=== PATIENT | female | born 1975 | race Caucasian/White ===

== ENCOUNTER 2023-08-27 14:27 | Emergency (ER) | payer BC, SELFPAY ==
[2023-08-27 14:46] VITALS: BP 130/82; PULSE 67; RESP 16; TEMP 37.1; O2SAT 98; BMI 37.7
[2023-08-27 15:16] LABS: Add Manual Diff / Slide Review NO; Basophils Absolute Auto 100 /uL (0-100); Basophils Percent Auto 1.5 % (0-2); Eosinophils Absolute Auto 200 /uL (0-450); Eosinophils Percent Auto 2.7 % (2-4); Hematocrit 41.9 % (36-46); Hemoglobin 14.4 g/dL (12.0-16.0); Lymphocytes Absolute Auto 3400 /uL (1100-4500); Lymphocytes Percent Auto 40.7 % (25-40); Mean Corpuscular HGB Conc 34.3 % (30-36); Mean Corpuscular Hemoglobin 30.1 PG (26-34); Mean Corpuscular Volume 87.7 fL (80-100); Monocytes Absolute Auto 500 /uL (0-900); Monocytes Percent Auto 6.3 % (3-14); Neutrophils Absolute Auto 4000 /uL (1500-7000); Neutrophils Percent Auto 48.8 % (50-75); Platelet Count 278 X10^3/uL (150-400); Red Blood Cell Count 4.78 X10^6/uL (4.0-5.2); Red Cell Distribution Width 14.1 % (11.6-14.8); White Blood Cell Count 8.3 X10^3/uL (4.5-11.0)
[2023-08-27 15:20] LABS: Alanine Aminotransferase 19 IU/L (<35); Albumin 4.3 g/dL (3.5-5.0); Albumin Globulin Ratio 1.5 (1.0-2.8); Alkaline Phosphatase 59 U/L (38-126); Aspartate Aminotransferase 24 IU/L (14-36); BUN Creatinine Ratio 14.5 (6-22); Bilirubin Total 0.9 mg/dL (0.2-1.3); Blood Urea Nitrogen 12 mg/dL (7-17); Calcium 8.7 mg/dL (8.4-10.2); Carbon Dioxide 30 mmol/L (22-32); Chloride 105 mmol/L (98-107); Estimated Glomerular Filt Rate > 60 mL/min (>60); Globulin 2.8 g/dL (1.7-4.1); Glucose 107 mg/dL (70-100); HEMOLYSIS 26 (0-50); Lipase 196 U/L (23-300); Potassium 3.8 mmol/L (3.4-5.1); Sodium 139 mmol/L (137-145); Total Protein 7.1 g/dL (6.3-8.2)
[2023-08-27 15:29] LABS: Bacteria Urine Occasional (0-1); Culture Indicated Urine Cult Not Indicated; RBC Urine 1-5/HPF (0-5/HPF); Squamous Epithelial Cell Urine 1-5 /HPF (0-5/HPF); Urine Volume 10mL (spun); WBC Urine 0-1/HPF (0-5/HPF)
--- NOTE | 2023-08-27 17:18 | DI.CT.S_ITS ---
PROCEDURE: CT ABDOMEN PELVIS W CON INDICATIONS: Left sided abd, flank pain TECHNIQUE: After the administration of intravenous contrast, axial sections acquired from the lung bases to the pubic symphysis. Coronal and sagittal reformats were performed. For radiation dose reduction, the following was used: automated exposure control, adjustment of mA and/or kV according to patient size. COMPARISON: None. FINDINGS: Image quality: Diagnostic Lower chest: Scattered scarring and atelectasis. Liver: Unremarkable. Gallbladder and biliary system: Unremarkable, nondilated Pancreas: No ductal dilation Spleen: Nonenlarged Adrenals: No discrete nodule. Kidneys: No solid renal mass. No hydronephrosis. Vessels and lymph nodes: The main portal vein is patent. No abdominal aortic aneurysm or pathologic lymph nodes by size criteria. Bowel and peritoneum: Mildly distended stomach. No small bowel obstruction. Colonic diverticula. There is mild wall thickening of the sigmoid colon. Mild surrounding inflammatory changes. The appendix is nondilated. Body wall: Small fat containing umbilical hernia Pelvis: Bladder is unremarkable. Focal low attenuation within the cervix, probably fluid. Adnexal structures are unremarkable on limited CT evaluation. Pelvic calcifications favored to represent phleboliths. Bones: No acute or suspicious osseous finding. There are degenerative changes. IMPRESSION: Mild fat stranding and wall thickening of the sigmoid colon. There are numerous diverticula. Findings may represent minimal acute on chronic diverticulitis. No abscess. No hydronephrosis or obstructing calcified stone Focal presumed fluid within the cervix. Consider correlation with direct visualization or ultrasound if there are symptoms. Other findings as above. Dictated by: Len Epstein M.D. on 08/27/2023 at 17:47 Approved by: Len Epstein M.D. on 08/27/2023 at 17:53
[2023-08-27 18:32] VITALS: BP 135/74; PULSE 65; RESP 18; O2SAT 97
--- NOTE | 2023-08-27 18:34 | ED.ABDPAIN ---
HPI - Abdominal Pain <Mame Hernandez PA-C - Last Filed: 08/27/23 18:40> General Chief Complaint: Abdominal Pain Stated Complaint: GI issues, flank pain, sent by [facility] Time Seen by Provider: 08/27/23 17:10 Source: patient Mode of arrival: Ambulatory History of Present Illness HPI narrative: 48-year-old female with past medical history nephrolithiasis presents to the ED with 3 days of left-sided abdominal pain. Patient endorses some soft stools as well as watery diarrhea. Patient endorses a prior history of kidney stones. Last time that the patient had kidney stones was in 2019 and was able to pass them spontaneously with tamsulosin. Patient denies fever, chills, chest pain, shortness of breath, dysuria, lightheadedness, dizziness, syncope. Patient denies vomiting but does endorse some mild nausea. Related Data Previous Rx's Medication Instructions Recorded citalopram 20 mg tablet 20 mg PO DAILY #90 tabs 07/13/23 ciprofloxacin HCl 500 mg tablet 500 mg PO BID 5 days #10 tabs 08/27/23 metronidazole 500 mg tablet 500 mg PO Q8H 5 days #15 tabs 08/27/23 Allergies Allergy/AdvReac Type Severity Reaction Status Date / Time Penicillins Allergy Severe Anaphylaxis Verified 08/27/23 13:53 adhesive tape Allergy Intermediate Rash Verified 08/27/23 13:53 Review of Systems <Mame Hernandez PA-C - Last Filed: 08/27/23 18:40> Constitutional Constitutional: Denies chills, Denies fatigue, Denies fever(s), Denies frequent falls, Denies lethargy and Denies weakness Eyes Eyes: Denies change in vision, Denies eye discharge, Denies irritation and Denies loss of vision ENT Ears, Nose, Mouth, and Throat: Denies change in voice, Denies dizziness, Denies neck pain, Denies sore throat and Denies throat swelling Cardiovascular Cardiovascular: Denies chest pain, Denies irregular heart rhythm, Denies lightheadedness, Denies palpitations, Denies dyspnea, Denies dyspnea on exertion and Denies orthopnea Respiratory Respiratory: Denies cough, Denies dyspnea, Denies dyspnea on exertion and Denies wheezing Gastrointestinal Gastrointestinal: Reports abdominal pain, Denies change in bowel habits, Reports diarrhea, Reports nausea and Denies vomiting Musculoskeletal Musculoskeletal: Denies neck pain and Denies numbness Integumentary/Breasts Skin/Breast: Denies pruritus, Denies erythema, Denies rash and Denies wounds Neurologic Neurologic: Denies behavioral changes, Denies confusion, Denies dizziness, Denies frequent falls, Denies loss of vision, Denies numbness and Denies weakness Psychiatric Psychiatric: Denies anxiety, Denies behavioral changes, Denies confusion, Denies depression, Denies homicidal ideation and Denies suicidal ideation Endocrine Endocrine: Denies fatigue, Denies flushing and Denies palpitations Hematologic/Lymphatic Hematologic/Lymphatic: Denies easy bruising Allergic/Immunologic Allergic/Immunologic: Denies urticaria, Denies throat swelling and Denies wheezing Patient History <Mame Hernandez PA-C - Last Filed: 08/27/23 18:40> Medical History History of nephrolithiasis Premenstrual dysphoric disorder Social History Smoking Status: Former smoker Smoking Status: Former smoker Exam <Mame Hernandez PA-C - Last Filed: 08/27/23 18:40> Narrative Exam Narrative: Const General:?cooperative, healthy appearing and comfortable [facility] Head:?normal to inspection Ears:?hearing grossly normal bilaterally Nose:?external nose normal Face and sinus:?normal facial exam and sinuses nontender Mouth:?oral mucosae normal Throat:?posterior oropharynx normal Eyes General:?appearance normal, both eyes and all related structures Neck Neck:?normal visual inspection and no lymphadenopathy noted Resp Effort & Inspection:?normal respiratory effort Auscultation:?clear to auscultation bilaterally Cardio Rate:?regular rate Rhythm:?regular rhythm GI Abdomen is soft, nondistended, tender to palpation in the left upper and left lower quadrant. No CVA tenderness. Neuro General:?patient alert, patient awake and patient oriented x3 Initial Vital Signs Initial Vital Signs: Vital Signs Temperature 98.7 F 08/27/23 14:46 Pulse Rate 67 08/27/23 14:46 Respiratory Rate 16 08/27/23 14:46 Blood Pressure 130/82 08/27/23 14:46 Pulse Oximetry 98 08/27/23 14:46 Oxygen Delivery Method Room Air 08/27/23 14:46 <Chente Sifuentes MD - Last Filed: 08/31/23 11:39> Initial Vital Signs Initial Vital Signs: Vital Signs Temperature 98.7 F 08/27/23 14:46 Pulse Rate 67 08/27/23 14:46 Respiratory Rate 16 08/27/23 14:46 Blood Pressure 130/82 08/27/23 14:46 Pulse Oximetry 98 08/27/23 14:46 Oxygen Delivery Method Room Air 08/27/23 14:46 Course <Mame Hernandez PA-C - Last Filed: 08/27/23 18:40> Orders Ordered: Discontinued Medications Ondansetron HCl (Ondansetron 4 Mg/2 Ml Inj) 4 mg IV NOW PRN PRN Reason: Nausea And Vomiting Ondansetron HCl (Ondansetron 4 Mg Odt) 4 mg PO NOW PRN PRN Reason: Nausea And Vomiting Vital Signs Vital signs: Vital Signs - 8 hr 08/27/23 14:46 Temperature 98.7 F Pulse Rate 67 Respiratory Rate 16 Blood Pressure 130/82 Pulse Oximetry 98 Oxygen Delivery Method Room Air <Chente Sifuentes MD - Last Filed: 08/31/23 11:39> Orders Ordered: Discontinued Medications Ondansetron HCl (Ondansetron 4 Mg/2 Ml Inj) 4 mg IV NOW PRN PRN Reason: Nausea And Vomiting Ondansetron HCl (Ondansetron 4 Mg Odt) 4 mg PO NOW PRN PRN Reason: Nausea And Vomiting Vital Signs Vital signs: Vital Signs - 8 hr 08/27/23 14:46 Temperature 98.7 F Pulse Rate 67 Respiratory Rate 16 Blood Pressure 130/82 Pulse Oximetry 98 Oxygen Delivery Method Room Air MDM - Abdominal Pain <Mame Hernandez PA-C - Last Filed: 08/27/23 18:40> Lab Data 08/27/23 14:55 08/27/23 14:55 Labs: Lab Results 08/27/23 Range/Units 14:55 WBC 8.3 (4.5-11.0) X10^3/uL RBC 4.78 (4.0-5.2) X10^6/uL Hgb 14.4 (12.0-16.0) g/dL Hct 41.9 (36-46) % MCV 87.7 (80-100) fL MCH 30.1 (26-34) PG MCHC 34.3 (30-36) % RDW 14.1 (11.6-14.8) % Plt Count 278 (150-400) X10^3/uL Neut % (Auto) 48.8 L (50-75) % Lymph % (Auto) 40.7 H (25-40) % [place] % (Auto) 6.3 (3-14) % Eos % (Auto) 2.7 (2-4) % Baso % (Auto) 1.5 (0-2) % Neut # (Auto) 4000 (4385-5544) /uL Lymph # (Auto) 3400 (7062-1857) /uL [place] # (Auto) 500 (0-900) /uL Eos # (Auto) 200 (0-450) /uL Baso # (Auto) 100 (0-100) /uL Sodium 139 (137-145) mmol/L Potassium 3.8 (3.4-5.1) mmol/L Chloride 105 (98-107) mmol/L Carbon Dioxide 30 (22-32) mmol/L BUN 12 (7-17) mg/dL Creatinine 0.83 (0.52-1.04) mg/dL Estimated GFR > 60 (>60) mL/min BUN/Creatinine Ratio 14.5 (6-22) Glucose 107 H (70-100) mg/dL Calcium 8.7 (8.4-10.2) mg/dL Total Bilirubin 0.9 (0.2-1.3) mg/dL AST 24 (14-36) IU/L ALT 19 (<35) IU/L Alkaline Phosphatase 59 (38-126) U/L Total Protein 7.1 (6.3-8.2) g/dL Albumin 4.3 (3.5-5.0) g/dL Globulin 2.8 (1.7-4.1) g/dL Albumin/Globulin Ratio 1.5 (1.0-2.8) Lipase 196 (23-300) U/L Urine RBC 1-5/hpf (0-5/HPF) Urine WBC 0-1/hpf (0-5/HPF) Ur Squamous Epith Cells 1-5 /hpf (0-5/HPF) Urine Bacteria Occasional (0-1) (None) Ur Culture Indicated? Cult not indicated Vol Urine Centrifuged 10ml (spun) Point of care testing: Urine Dip Bedside Urine Glucose Negative Bedside Urine Bilirubin - Negative Bedside Urine Ketone - Negative Urine Specific [place] 1.030 Bedside Urine Occult Blood ++ Bedside Urine pH 6.0 Bedside Urine Protein - Negative Bedside Urine Urobilinogen - Negative Bedside Urine Nitrite - Negative Bedside Urine Leukocytes - Negative Esterase MDM Narrative Medical decision making narrative: 48-year-old female with past medical history nephrolithiasis presents to the ED with 3 days of left-sided abdominal pain. Concern for nephrolithiasis versus diverticulitis versus UTI versus gastroenteritis versus other intra-abdominal pathology versus other. Will obtain labs, UA, CT abdomen pelvis. Labs within normal limits. UA without UTI. CT abdomen pelvis shows mild fat stranding and wall thickening of the sigmoid colon. There are numerous diverticula. Findings may represent minimal acute on chronic diverticulitis. No abscess. No hydronephrosis or obstructing calcified stone. There is some focal presumed fluid within the cervix. Discussed findings with patient. Prescribed antibiotics. Recommend clear fluid diet, slowly advancing the diet as tolerated. Recommend follow-up with PCP as soon as possible. ED return precautions discussed with patient. Patient verbalized understanding. Medical records reviewed: Yes <Chente Sifuentes MD - Last Filed: 08/31/23 11:39> Lab Data Labs: Lab Results 08/27/23 Range/Units 14:55 WBC 8.3 (4.5-11.0) X10^3/uL RBC 4.78 (4.0-5.2) X10^6/uL Hgb 14.4 (12.0-16.0) g/dL Hct 41.9 (36-46) % MCV 87.7 (80-100) fL MCH 30.1 (26-34) PG MCHC 34.3 (30-36) % RDW 14.1 (11.6-14.8) % Plt Count 278 (150-400) X10^3/uL Neut % (Auto) 48.8 L (50-75) % Lymph % (Auto) 40.7 H (25-40) % [place] % (Auto) 6.3 (3-14) % Eos % (Auto) 2.7 (2-4) % Baso % (Auto) 1.5 (0-2) % Neut # (Auto) 4000 (0202-5592) /uL Lymph # (Auto) 3400 (4124-9119) /uL [place] # (Auto) 500 (0-900) /uL Eos # (Auto) 200 (0-450) /uL Baso # (Auto) 100 (0-100) /uL Sodium 139 (137-145) mmol/L Potassium 3.8 (3.4-5.1) mmol/L Chloride 105 (98-107) mmol/L Carbon Dioxide 30 (22-32) mmol/L BUN 12 (7-17) mg/dL Creatinine 0.83 (0.52-1.04) mg/dL Estimated GFR > 60 (>60) mL/min BUN/Creatinine Ratio 14.5 (6-22) Glucose 107 H (70-100) mg/dL Calcium 8.7 (8.4-10.2) mg/dL Total Bilirubin 0.9 (0.2-1.3) mg/dL AST 24 (14-36) IU/L ALT 19 (<35) IU/L Alkaline Phosphatase 59 (38-126) U/L Total Protein 7.1 (6.3-8.2) g/dL Albumin 4.3 (3.5-5.0) g/dL Globulin 2.8 (1.7-4.1) g/dL Albumin/Globulin Ratio 1.5 (1.0-2.8) Lipase 196 (23-300) U/L Urine RBC 1-5/hpf (0-5/HPF) Urine WBC 0-1/hpf (0-5/HPF) Ur Squamous Epith Cells 1-5 /hpf (0-5/HPF) Urine Bacteria Occasional (0-1) (None) Ur Culture Indicated? Cult not indicated Vol Urine Centrifuged 10ml (spun) Point of care testing: Urine Dip Bedside Urine Glucose Negative Bedside Urine Bilirubin - Negative Bedside Urine Ketone - Negative Urine Specific [place] 1.030 Bedside Urine Occult Blood ++ Bedside Urine pH 6.0 Bedside Urine Protein - Negative Bedside Urine Urobilinogen - Negative Bedside Urine Nitrite - Negative Bedside Urine Leukocytes - Negative Esterase Discharge Plan Departure Patient Disposition: Home Clinical Impression: Diverticulitis Instructions: DI for Diverticulitis Activity Restrictions/Additional Instructions: You were evaluated in the ED today for diarrhea and abdominal pain. Your labs and urine were normal. Your CT scan does show diverticulitis, which is an infection in your colon. You are being treated with antibiotics for it. Please take the antibiotics as prescribed. It is recommended that you consume a clear liquid diet for the next 2-3 days, slowly advancing your diet to include more solids. Please follow-up with your PCP as soon as possible. Return to the ED if you have worsening symptoms. Prescriptions: New ciprofloxacin HCl 500 mg tablet 500 mg PO BID 5 Days Qty: 10 0RF metronidazole 500 mg tablet 500 mg PO Q8H 5 Days Qty: 15 0RF No Action citalopram 20 mg tablet 20 mg PO DAILY Qty: 90 4RF Referrals: Bri Cruz MD [Primary Care Provider] - Stand Alone Forms: Patient Portal/API ED Sign-out <Chente Sifuentes MD - Last Filed: 08/31/23 11:39> Cosign ED Attending Cosignature Attestation: I was immediately available in the department for consultation. ?This documentation has been reviewed and I agree with assessment and plan. Supervised by Chente Sifuentes MD
== END 2023-08-27 18:32 | disposition home or self-care (01) ==
PROVIDERS: Emergency Medicine; Emergency Provider Student in an Organized Health Care Education/Training Program; PCP Family Medicine
DX: K57.92 Diverticulitis of intestine, part unspecified, without perforation or abscess without bleeding (principal); R19.7 Diarrhea, unspecified
CPT/HCPCS: 36415; 74177; 80053; 81003; 81015; 83690; 85025; 99284; Q9967

== ENCOUNTER → 2023-10-06 10:55 | Outpatient (CLI) | payer BC, SELFPAY ==
[2023-10-09 11:11] LABS: H. Pylori Antigen Stool Negative (Negative)
== END ==
PROVIDERS: PCP Family Medicine; Referring Provider Family Medicine; Visit Provider Family Medicine
DX: K92.1 Melena (principal); R19.5 Other fecal abnormalities
CPT/HCPCS: 87338

== ENCOUNTER → 2023-11-24 13:10 | Outpatient (CLI) | payer BC, SELFPAY ==
--- NOTE | 2023-11-24 | DI.MG.S_ITS ---
BILATERAL DIGITAL SCREENING MAMMOGRAM 3D/2D WITH CAD: 11/24/2023 CLINICAL: Routine screening. Family history of breast cancer. Comparison is made to exams dated: 09/30/2022 mammogram and 08/30/2021 mammogram - Outside facility. The breasts are heterogeneously dense, which may obscure small masses (category c / 51-75% glandular tissue). Current study was also evaluated with a Computer Aided Detection (CAD) system. No significant masses, calcifications, or other findings are seen in either breast. There has been no significant interval change. IMPRESSION: NEGATIVE There is no mammographic evidence of malignancy. A 1 year screening mammogram is recommended. Based on the Tyrer Cuzick model (a risk assessment model) the patient's lifetime risk is 11.2% and her 10 year risk is 2.4%. According to the ACR, ACS, and NCCN guidelines, an annual breast MRI exam along with mammogram is recommended if the patient's lifetime risk is 20% or greater. This exam was interpreted at Station ID: [id number]. NOTE: For mammograms, a report in lay terms will be sent to the patient. Approximately 15% of breast malignancies will not be visualized mammographically. In the management of a palpable breast mass, a negative mammogram must not discourage biopsy of a clinically suspicious lesion. Electronically Signed By: Rubina self/julieta:11/26/2023 12:01:16 letter sent: Normal Exam ACR BI-RADS Category 1: Negative [id number]
== END ==
LOC: MAMMO 13:11
PROVIDERS: PCP Family Medicine; Referring Provider Family Medicine; Visit Provider Family Medicine
DX: Z12.31 Encounter for screening mammogram for malignant neoplasm of breast (principal); Z80.3 Family history of malignant neoplasm of breast; R92.333 Mammographic heterogeneous density, bilateral breasts
CPT/HCPCS: 77063; 77067

== ENCOUNTER 2023-12-27 10:15 | Emergency (ER) | payer BC, SELFPAY ==
[2023-12-27] VITALS (24 sets, daily range): BP systolic 109–152; BP diastolic 58–81; PULSE 57–91; RESP 11–29; TEMP 36.6; O2SAT 92–98; BMI 37.7
[2023-12-27] MEDS: ACETAMINOPHEN 325 MG TABLET 650 MG PO (10:25)
--- NOTE | 2023-12-27 11:41 | ED_ITS ---
HPI - Headache General Chief Complaint: Headache Stated Complaint: Headache, feeling sick , shaky Time Seen by Provider: 12/27/23 11:39 Mode of arrival: Ambulatory History of Present Illness HPI Narrative: 48-year-old woman with a history of depression, headaches presents with severe headache present for 24 hours and increasing pelvic pain and tenderness. She was seen by her primary care physician on December 20 with concerns for tenderness left labial/vaginal area. There was concern for a Bartholin's cyst however drainage was attempted and no fluid was returned. Patient complains that this area continues to hurt she is having pain with defecation she is having trouble sitting flat now is notice some inguinal adenopathy on the left side and some low pelvic pain. No nausea or vomiting. No chest pain, palpitations, fevers or cough Related Data Previous Rx's Medication Instructions Recorded citalopram 20 mg tablet 20 mg PO DAILY #90 tabs 07/13/23 doxycycline hyclate 100 mg capsule 100 mg PO BID #20 caps 12/27/23 oxycodone-acetaminophen 5 mg-325 1 tab PO Q6H PRN pain #14 tabs 12/27/23 mg tablet Allergies Allergy/AdvReac Type Severity Reaction Status Date / Time Penicillins Allergy Severe Anaphylaxis Verified 12/27/23 10:19 adhesive tape Allergy Intermediate Rash Verified 12/27/23 10:19 Review of Systems Review of Systems Narrative: Pertinent positive and negative findings as per HPI Patient History Medical History Mucus in stool Hematochezia History of nephrolithiasis Premenstrual dysphoric disorder Social History Smoking Status: Former smoker Smoking Status: Former smoker alcohol intake frequency: holidays/special occasions only Substance Use Type: does not use Exam Initial Vital Signs Initial Vital Signs: Vital Signs Temperature 97.8 F 12/27/23 10:19 Pulse Rate 72 12/27/23 10:19 Respiratory Rate 14 12/27/23 10:19 Blood Pressure 152/70 H 12/27/23 10:19 Pulse Oximetry 95 12/27/23 10:19 Oxygen Delivery Method Room Air 12/27/23 10:19 General: Ill-appearing, pale, headache behaviors, able to cooperate completely with exam and history HEENT: Moist mucous membranes, normal sclera with reactive pupils, Respiratory: Lungs are clear to auscultation, no wheezing no rales no rhonchi. Full and symmetrical air movement Cardiac: Regular rate and rhythm no murmurs no bruits Abdomen: Soft, mild tenderness in the left lower quadrants, left inguinal adenopathy Pelvic: She has fullness and tenderness along the left vaginal wall, perineal body and perirectal area no obvious abscess appreciated. Prior attempts for drainage appear to have healed nicely. Skin: Warm and dry, no rashes Neurologic: Grossly neurologically intact with no obvious asymmetries or abnormalities Extremities: No trauma, well perfused Psych: Cooperative, appropriate insight and affect Course Orders Ordered: ED Orders 12/27/23 11:57 CT abdomen pelvis w con Stat 12/27/23 12:10 Blood Culture Stat Complete Blood Count AUTO DIFF Stat Comprehensive Metabolic Panel Stat Lactate (Lactic Acid) Stat 12/27/23 13:37 Urinalysis and Microscopic Stat Discontinued Medications Acetaminophen (Acetaminophen 325 Mg Tablet) 650 mg PO NOW ONE Stop: 12/27/23 10:24 Last Admin: 12/27/23 10:25 Dose: 650 mg Documented By: LUCHO Acetaminophen (Acetaminophen 325 Mg Tablet) 975 mg PO NOW ONE Stop: 12/27/23 15:02 Last Admin: 12/27/23 15:25 Dose: 975 mg Documented By: RAHEEM Droperidol (Droperidol 5 Mg/2 Ml Vial) 0.625 mg IV NOW ONE Stop: 12/27/23 15:02 Last Admin: 12/27/23 15:25 Dose: 0.625 mg Documented By: RAHEEM Sodium Chloride (Normal Saline 0.9%) 1,000 mls @ 1,000 mls/hr IV BOLUS ONE Stop: 12/27/23 12:55 Last Infusion: 12/27/23 13:23 Dose: Infused Documented By: Admin: 12/27/23 12:02 Dose: 1,000 mls/hr Documented By: LUCHO(2) Ketorolac Tromethamine (Ketorolac 30 Mg/Ml Vial) 15 mg IV NOW ONE Stop: 12/27/23 11:57 Last Admin: 12/27/23 12:02 Dose: 15 mg Documented By: LUCHO(2) Ondansetron HCl (Ondansetron 4 Mg/2 Ml Inj) 4 mg IV NOW ONE Stop: 12/27/23 11:57 Last Admin: 12/27/23 12:02 Dose: 4 mg Documented By: LUCHO(2) Vital Signs Vital signs: Vital Signs - 8 hr 12/27/23 10:19 12/27/23 11:22 12/27/23 11:22 Temperature 97.8 F Pulse Rate 72 75 Respiratory Rate 14 Blood Pressure 152/70 H 133/67 Pulse Oximetry 95 96 Oxygen Delivery Method Room Air 12/27/23 11:30 12/27/23 11:30 12/27/23 12:00 Temperature Pulse Rate 68 67 Respiratory Rate Blood Pressure 124/67 Pulse Oximetry 93 93 Oxygen Delivery Method 12/27/23 12:00 12/27/23 12:12 12/27/23 12:16 Temperature Pulse Rate 57 L Respiratory Rate Blood Pressure 123/70 118/66 Pulse Oximetry 96 Oxygen Delivery Method 12/27/23 12:30 12/27/23 12:30 12/27/23 12:45 Temperature Pulse Rate 64 Respiratory Rate 12 Blood Pressure 119/58 L 113/58 L Pulse Oximetry 96 Oxygen Delivery Method 12/27/23 12:45 12/27/23 12:57 12/27/23 12:58 Temperature Pulse Rate 69 65 Respiratory Rate 16 15 Blood Pressure 125/69 Pulse Oximetry 95 95 Oxygen Delivery Method 12/27/23 12:58 12/27/23 13:00 12/27/23 13:00 Temperature Pulse Rate 64 65 Respiratory Rate 12 11 L Blood Pressure 109/66 Pulse Oximetry 98 97 Oxygen Delivery Method 12/27/23 13:15 12/27/23 13:15 12/27/23 13:36 Temperature Pulse Rate 63 68 Respiratory Rate 13 13 Blood Pressure 124/77 Pulse Oximetry 97 92 Oxygen Delivery Method 12/27/23 13:37 12/27/23 13:37 12/27/23 13:45 Temperature Pulse Rate 65 Respiratory Rate 13 Blood Pressure 130/63 127/61 Pulse Oximetry 97 Oxygen Delivery Method 12/27/23 13:45 12/27/23 14:00 12/27/23 14:00 Temperature Pulse Rate 65 68 Respiratory Rate 15 Blood Pressure 119/58 L Pulse Oximetry 97 96 Oxygen Delivery Method 12/27/23 14:15 12/27/23 14:15 12/27/23 14:43 Temperature Pulse Rate 67 91 H Respiratory Rate 16 Blood Pressure 120/65 Pulse Oximetry 97 Oxygen Delivery Method 12/27/23 15:00 12/27/23 15:30 Temperature Pulse Rate 64 71 Respiratory Rate 18 Blood Pressure Pulse Oximetry 97 96 Oxygen Delivery Method MDM - Headache Lab Data 12/27/23 12:10 12/27/23 12:10 Labs: Lab Results 12/27/23 12/27/23 Range/Units 12:10 13:37 WBC 8.2 (4.5-11.0) X10^3/uL RBC 4.97 (4.0-5.2) X10^6/uL Hgb 14.8 (12.0-16.0) g/dL Hct 43.0 (36-46) % MCV 86.6 (80-100) fL MCH 29.9 (26-34) PG MCHC 34.5 (30-36) % RDW 13.5 (11.6-14.8) % Plt Count 282 (150-400) X10^3/uL Neut % (Auto) 69.8 (50-75) % Lymph % (Auto) 25.5 (25-40) % [place] % (Auto) 3.4 (3-14) % Eos % (Auto) 0.4 L (2-4) % Baso % (Auto) 0.9 (0-2) % Neut # (Auto) 5700 (8838-8039) /uL Lymph # (Auto) 2100 (2980-2131) /uL [place] # (Auto) 300 (0-900) /uL Eos # (Auto) 0 (0-450) /uL Baso # (Auto) 100 (0-100) /uL Sodium 136 L (137-145) mmol/L Potassium 4.0 (3.4-5.1) mmol/L Chloride 102 (98-107) mmol/L Carbon Dioxide 27 (22-32) mmol/L BUN 9 (7-17) mg/dL Creatinine 0.55 (0.52-1.04) mg/dL Estimated GFR > 60 (>60) mL/min BUN/Creatinine Ratio 16.4 (6-22) Glucose 107 H (70-100) mg/dL Lactate 1.3 (0.7-2.1) mmol/L Calcium 9.0 (8.4-10.2) mg/dL Total Bilirubin 1.0 (0.2-1.3) mg/dL AST 21 (14-36) IU/L ALT 19 (<35) IU/L Alkaline Phosphatase 59 (38-126) U/L Total Protein 7.2 (6.3-8.2) g/dL Albumin 4.2 (3.5-5.0) g/dL Globulin 3.0 (1.7-4.1) g/dL Albumin/Globulin Ratio 1.4 (1.0-2.8) Urine Color Yellow Urine Appearance Clear Urine pH 8.5 H (4.5-8.0) Ur Specific [place] 1.010 (1.000-1.035) Urine Protein Negative (Negative) Urine Glucose (UA) Negative (Negative) g/dL Urine Ketones Negative (NEGATIVE) Urine Occult Blood Trace-intact (Negative) Urine Nitrate Negative (Negative) Urine Bilirubin Negative (NEGATIVE) Urine Urobilinogen 1.0 (0.2) E.U./dL Ur Leukocyte Esterase Negative (NEGATIVE) Urine RBC None seen (0-5/HPF) Urine WBC None seen (0-5/HPF) Ur Squamous Epith Cells 0-1 /hpf (0-5/HPF) Urine Bacteria None seen (None) Ur Culture Indicated? Cult not indicated Vol Urine Centrifuged 10ml (spun) Imaging Data CT scan - abdomen/pelvis: Radiologist's Impression: PROCEDURE: CT ABDOMEN PELVIS W CON INDICATIONS: pelvic/perirectal abscess TECHNIQUE: After the administration of intravenous contrast, axial sections acquired from the lung bases to the pubic symphysis. Coronal and sagittal reformats were performed. For radiation dose reduction, the following was used: automated exposure control, adjustment of mA and/or kV according to patient size. COMPARISON: [facility], CT, CT ABDOMEN PELVIS W CON, 08/27/2023, 17:25. FINDINGS: Image quality: Diagnostic. Lower Chest: No significant findings. ABDOMEN: Liver: No solid mass. Gallbladder: No radiopaque gallstones or wall thickening. Biliary ducts: No biliary dilation. Pancreas: No ductal dilation. Spleen: Size is within normal limits. Adrenal Glands: No adrenal nodules. Kidneys and Ureters: No hydronephrosis. No solid mass. No complex renal cystic lesion which requires follow up. Stomach and Bowel: Normal colonic caliber, without significant wall thickening. Mild distal colonic diverticulosis is seen, without findings of active diverticulitis. A normal appendix is noted. No dilated loops of small bowel are seen. Peritoneum: No abnormal intraperitoneal fluid. No free air. Ventral Wall: No significant ventral hernia. Abdominal Nodes: No retroperitoneal or mesenteric adenopathy by size criteria. Vessels: Aorta and inferior vena cava are normal in size. PELVIS: Pelvic Organs: A small amount of fluid again seen at the level of the cervix, as on series 2, image 135 and on series 4, image 78. This appears improved compared to the prior examination. Bladder: No bladder wall thickening, accounting for underdistention. Pelvic Nodes: No enlarged lymph nodes. Miscellaneous: No inguinal hernias are seen. There is abnormal fluid collection seen within the left perineum, seen anterior to the anus, near the introitus. This can be seen on series 2, image 162 measures 2 x 1.3 cm in greatest axial dimension, with a craniocaudal extent of 1.4 cm. This is clearly worse than on the prior examination. Moderate surrounding inflammatory change can be seen. Bones: No aggressive osseous abnormality. IMPRESSION: Abnormal fluid collection seen within the left perineum, anterior to the rectum, near the introitus. Please consider a Bartholin's gland abscess. Please correlate with physical examination findings. Improved fluid within the cervix. Additional findings: Normal appendix Diverticulosis, without active diverticulitis Dictated by: Star Bridges M.D. on 12/27/2023 at 12:24 MDM Narrative Medical decision making narrative: CC: Headache malaise and left pelvic pain Complicating co-morbidities: History of headaches, history of Bartholin duct cyst Data collected from: patient Differential considered: Migraine, concurrent Bartholin duct cyst, perirectal abscess, sepsis Exam documented above, pertinent findings include: Patient appears unwell but is able to cooperate fully with exam. Aside from left lower pelvic tenderness fullness along the left vaginal wall that does not appear to be mucosal, inguinal adenopathy and peroneal tenderness exam is otherwise fairly reassuring Lab Test results independently reviewed as above. Pertinent findings: CBC is unremarkable Chemistries are reassuring Urine does not show infection Imaging studies independently reviewed: CT scan shows an abnormal fluid collection the left perineum anterior to the rectum near the vaginal introitus measuring 2 x 1.3 by 1.4 cm. Concern for a Bartholin gland abscess. Consultations: Care is discussed with Dr. Shine, md psychiatry. Given the fact patient does not have a white count, is not septic appearing, able to eat and drink we agreed that a trial with oral doxycycline to begin with discharge home would be appropriate. This is reviewed with the patient who is amenable to this plan Treatments: Tylenol, 1 L of fluid, Toradol, Zofran, droperidol all to treat her headache. She is given her initial dose of oral doxycycline in the emergency department Re-evaluations: 3pm patient is feeling somewhat better regarding her headache. Feels that it is returning. We will add Inapsine and Tylenol as she is hoping that she will be able to go home and drive herself Discussion: 48-year-old woman presents initially complaining of headache and I think is secondary to developing pelvic infection. Possible Bartholin duct abscess but no drainage into the vagina. This does not appear to be diverticulitis or diverticular abscess and not felt to be a perirectal abscess. With shared decision-making between the patient medicaid service coordinator to myself we opted for outpatient treatment with oral antibiotics. Talked about appropriate pain control reasons to return to the emergency department and follow up with Dr. Shine or 1 of her partners for the developing pelvic abscess. Patient is safe for discharge Discharge Plan Departure Patient Disposition: Home Clinical Impression: Abscess of female pelvis Headache Qualifiers: Headache type: unspecified Instructions: DI for Aspiration of Pelvic Abscess Activity Restrictions/Additional Instructions: Thank you for coming in today It looks like you do have a 2 x 2 x 2 cm size abscess on the left side of your vagina close to your rectum. This is not draining externally. It is relatively small and there was no evidence of severe infection according to blood work. You are not showing any signs of sepsis. I suspect that the headache is related to the low-grade infection. You need to complete 10 days of oral doxycycline, an antibiotic for the infection. You were given the 1st dose in the emergency department you do need to contact [facility] medicaid service coordinator phone number is [phone]. You can schedule an appointment with Dr. Shine or 1 of her Gynecology partners. Please explain to them that you were seen in the emergency department for pelvic abscess and need follow up Using 400 mg of ibuprofen (2 [id number] pills) and 1 Tylenol every 6 hours can be very helpful in controlling pain. For severe pain you can use 400 mg of ibuprofen and 1 Percocet. If you do choose to use Percocet please remember it is a narcotic potential for addiction and it will make you constipated. Please use a stool softener and simultaneously If you are getting worse, please return to the ER Prescriptions: New doxycycline hyclate 100 mg capsule 100 mg PO BID Qty: 20 0RF oxycodone-acetaminophen 5-325 mg tablet 1 tab PO Q6H PRN (Reason: pain) Qty: 14 0RF No Action citalopram 20 mg tablet 20 mg PO DAILY Qty: 90 4RF Referrals: Bri Cruz MD [Primary Care Provider] - Stand Alone Forms: Patient Portal/API
--- NOTE | 2023-12-27 11:57 | DI.CT.S_ITS ---
PROCEDURE: CT ABDOMEN PELVIS W CON INDICATIONS: pelvic/perirectal abscess TECHNIQUE: After the administration of intravenous contrast, axial sections acquired from the lung bases to the pubic symphysis. Coronal and sagittal reformats were performed. For radiation dose reduction, the following was used: automated exposure control, adjustment of mA and/or kV according to patient size. COMPARISON: [facility], CT, CT ABDOMEN PELVIS W CON, 08/27/2023, 17:25. FINDINGS: Image quality: Diagnostic. Lower Chest: No significant findings. ABDOMEN: Liver: No solid mass. Gallbladder: No radiopaque gallstones or wall thickening. Biliary ducts: No biliary dilation. Pancreas: No ductal dilation. Spleen: Size is within normal limits. Adrenal Glands: No adrenal nodules. Kidneys and Ureters: No hydronephrosis. No solid mass. No complex renal cystic lesion which requires follow up. Stomach and Bowel: Normal colonic caliber, without significant wall thickening. Mild distal colonic diverticulosis is seen, without findings of active diverticulitis. A normal appendix is noted. No dilated loops of small bowel are seen. Peritoneum: No abnormal intraperitoneal fluid. No free air. Ventral Wall: No significant ventral hernia. Abdominal Nodes: No retroperitoneal or mesenteric adenopathy by size criteria. Vessels: Aorta and inferior vena cava are normal in size. PELVIS: Pelvic Organs: A small amount of fluid again seen at the level of the cervix, as on series 2, image 135 and on series 4, image 78. This appears improved compared to the prior examination. Bladder: No bladder wall thickening, accounting for underdistention. Pelvic Nodes: No enlarged lymph nodes. Miscellaneous: No inguinal hernias are seen. There is abnormal fluid collection seen within the left perineum, seen anterior to the anus, near the introitus. This can be seen on series 2, image 162 measures 2 x 1.3 cm in greatest axial dimension, with a craniocaudal extent of 1.4 cm. This is clearly worse than on the prior examination. Moderate surrounding inflammatory change can be seen. Bones: No aggressive osseous abnormality. IMPRESSION: Abnormal fluid collection seen within the left perineum, anterior to the rectum, near the introitus. Please consider a Bartholin's gland abscess. Please correlate with physical examination findings. Improved fluid within the cervix. Additional findings: Normal appendix Diverticulosis, without active diverticulitis Dictated by: Star Bridges M.D. on 12/27/2023 at 12:24 Approved by: Star Bridges M.D. on 12/27/2023 at 12:29
[2023-12-27] MEDS: KETOROLAC 30 MG/ML VIAL 15 MG IV (12:02)
[2023-12-27] MEDS: ONDANSETRON 4 MG/2 ML INJ IV (12:02)
[2023-12-27] MEDS: SODIUM CHLORIDE 0.9% 1,000 ML 1000 ML IV (12:02)
[2023-12-27 12:22] LABS: Add Manual Diff / Slide Review NO; Basophils Absolute Auto 100 /uL (0-100); Basophils Percent Auto 0.9 % (0-2); Eosinophils Absolute Auto 0 /uL (0-450); Eosinophils Percent Auto 0.4 % (2-4); Hemoglobin 14.8 g/dL (12.0-16.0); Lymphocytes Absolute Auto 2100 /uL (1100-4500); Lymphocytes Percent Auto 25.5 % (25-40); Mean Corpuscular HGB Conc 34.5 % (30-36); Mean Corpuscular Hemoglobin 29.9 PG (26-34); Mean Corpuscular Volume 86.6 fL (80-100); Monocytes Absolute Auto 300 /uL (0-900); Monocytes Percent Auto 3.4 % (3-14); Neutrophils Absolute Auto 5700 /uL (1500-7000); Neutrophils Percent Auto 69.8 % (50-75); Platelet Count 282 X10^3/uL (150-400); Red Blood Cell Count 4.97 X10^6/uL (4.0-5.2); Red Cell Distribution Width 13.5 % (11.6-14.8); White Blood Cell Count 8.2 X10^3/uL (4.5-11.0)
[2023-12-27 12:33] LABS: Lactate (Lactic Acid) 1.3 mmol/L (0.7-2.1)
[2023-12-27 12:34] LABS: Alanine Aminotransferase 19 IU/L (<35); Albumin 4.2 g/dL (3.5-5.0); Albumin Globulin Ratio 1.4 (1.0-2.8); Alkaline Phosphatase 59 U/L (38-126); Aspartate Aminotransferase 21 IU/L (14-36); BUN Creatinine Ratio 16.4 (6-22); Blood Urea Nitrogen 9 mg/dL (7-17); Carbon Dioxide 27 mmol/L (22-32); Chloride 102 mmol/L (98-107); Estimated Glomerular Filt Rate > 60 mL/min (>60); Glucose 107 mg/dL (70-100); HEMOLYSIS < 15 (0-50); Sodium 136 mmol/L (137-145); Total Protein 7.2 g/dL (6.3-8.2)
[2023-12-27 13:46] LABS: Appearance Urine UA CLEAR; Bilirubin Urine UA NEGATIVE (NEGATIVE); Color Urine UA YELLOW; Glucose Urine UA NEGATIVE (Negative); Ketones Urine UA NEGATIVE (NEGATIVE); Leukocyte Esterase Urine UA NEGATIVE (NEGATIVE); Nitrite Urine UA NEGATIVE (Negative); Occult Blood Urine UA TRACE-INTACT (Negative); Protein Urine UA NEGATIVE (Negative)
[2023-12-27 13:48] LABS: pH Urine UA 8.5 (4.5-8.0)
[2023-12-27 14:05] LABS: Bacteria Urine None Seen; RBC Urine None Seen (0-5/HPF); Urine Volume 10mL (spun); WBC Urine None Seen (0-5/HPF)
[2023-12-27 14:06] LABS: Culture Indicated Urine Cult Not Indicated; Squamous Epithelial Cell Urine 0-1 /HPF (0-5/HPF)
[2023-12-27] MEDS: ACETAMINOPHEN 325 MG TABLET 975 MG PO (15:25)
[2023-12-27] MEDS: DROPERIDOL 5 MG/2 ML VIAL 0.625 MG IV (15:25)
[2023-12-27] MEDS: DOXYCYCLINE HYCLATE 100 MG TABLET PO (16:03)
== END 2023-12-27 16:14 | disposition home or self-care (01) ==
PROVIDERS: Emergency Provider Emergency Medicine; PCP Family Medicine
DX: N73.9 Female pelvic inflammatory disease, unspecified (principal); R51.9 Headache, unspecified
CPT/HCPCS: 36415; 74177; 80053; 81001; 83605; 85025; 87040; 96361; 96374; 96375; 99284; J1790; J1885; J2405; Q9967

== ENCOUNTER → 2024-09-19 16:12 | Outpatient (CLI) | payer BC, SELFPAY ==
[2024-09-19 16:53] LABS: Add Manual Diff / Slide Review NO; Hematocrit 42.6 % (36-46); Hemoglobin 14.8 g/dL (12.0-16.0); Lymphocytes Absolute Auto 3500 /uL (1100-4500); Mean Corpuscular HGB Conc 34.8 % (30-36); Mean Corpuscular Hemoglobin 30.5 PG (26-34); Mean Corpuscular Volume 87.6 fL (80-100); Platelet Count 275 X10^3/uL (150-400)
[2024-09-19 17:23] LABS: Vitamin D 25 Hydroxy (D3) 36.8 ng/mL (30.0-100.0)
[2024-09-19 17:40] LABS: TSH w/ Reflex to FT4 1.57 uIU/mL (0.47-4.68)
[2024-09-19 17:49] LABS: Follicle Stimulating Hormone 16.2 mIU/mL
[2024-09-19 17:59] LABS: Vitamin B12 243 pg/mL (239-931)
[2024-09-19 18:05] LABS: Estradiol, Total 67.1 pg/mL
== END ==
PROVIDERS: PCP Family Medicine; Referring Provider Family Medicine; Visit Provider Family Medicine
DX: R23.2 Flushing (principal); Z86.39 Personal history of other endocrine, nutritional and metabolic disease; R53.83 Other fatigue
CPT/HCPCS: 36415; 82306; 82607; 82670; 83001; 84443; 85025

== ENCOUNTER → 2024-12-20 09:05 | Outpatient (CLI) | payer BC, SELFPAY | PROVIDERS: PCP Family Medicine; Referring Provider Family Medicine; Visit Provider Family Medicine | DX: Z13.79 Encounter for other screening for genetic and chromosomal anomalies (principal); R10.9 Unspecified abdominal pain | CPT/HCPCS: 36415 ==

== ENCOUNTER → 2024-12-25 07:46 | Outpatient (CLI) | payer BC, SELFPAY ==
--- NOTE | 2024-12-25 07:48 | DI.US.S_ITS ---
PROCEDURE: US PELVIC COMPLETE INDICATIONS: abdominal/pelvic pain, hx of ovarian cysts TECHNIQUE: Real-time scanning was performed of the pelvic organs, with image documentation. Additional endovaginal scanning was necessary due to incomplete visualization of the adnexal and endometrial structures by transabdominal scanning. COMPARISON: [facility], CT, CT ABDOMEN PELVIS W CON, 12/27/2023, 12:52. FINDINGS: Uterus: 8.6 x 4.3 x 5.1 cm. Anteverted positioning. Endometrium measures 6 mm. Intramural 1.3 cm fibroid is seen in the right anterior region. Cervical nabothian cysts are present. Ovaries: Nonenlarged, measuring 1 cc bilaterally. Other: No pathologic free abdominal or pelvic fluid. IMPRESSION: No acute pelvic abnormality by ultrasound. Intramural 1.3 cm fibroid. 6 mm endometrium, nonthickened assuming patient is not postmenopausal Dictated by: Len Epstein M.D. on 12/25/2024 at 9:24 Approved by: Len Epstein M.D. on 12/25/2024 at 9:25
== END ==
LOC: US 07:47
PROVIDERS: PCP Family Medicine; Referring Provider Family Medicine; Visit Provider Family Medicine
DX: R10.9 Unspecified abdominal pain (principal); D25.1 Intramural leiomyoma of uterus; N88.8 Other specified noninflammatory disorders of cervix uteri
CPT/HCPCS: 76830; 76856